=== PATIENT | female | born 1970 | race Caucasian/White ===

== ENCOUNTER → 2017-01-07 | Outpatient (CLI) | payer OTHER ==
[2015-02-13 16:43] VITALS: BP 157/95
[~2017-01-07] MED LIST: ALBUTEROL0.83 MG/ML IH; ASP PO; ASPIRIN 32325 MG/TAB PO; BUTALBITAL PO; CHLORTHALIDONE25 MG PO; LOSARTAN POTASS50 MG PO; NORVASC 5MG5 MG/TAB PO; OMNICEF 300MG300 MG PO; TORADOL10 MG PO; ZITHROMAX Z PA250 MG PO
== END ==
LOC: LAB 09:57
DX: R11.11 Vomiting without nausea (principal); W57.XXXA Bitten or stung by nonvenomous insect and other nonvenomous arthropods, initial encounter

== ENCOUNTER → 2017-04-06 | Outpatient (CLI) | payer OTHER ==
[2015-02-13 16:43] VITALS: BP 157/95
== END ==
LOC: MAMMO 08:08
DX: Z12.11 Encounter for screening for malignant neoplasm of colon (principal)
CPT/HCPCS: G0202

== ENCOUNTER → 2017-04-08 | Outpatient (CLI) | payer OTHER ==
[2015-02-13 16:43] VITALS: BP 157/95
== END ==
LOC: LAB 08:43
DX: I10 Essential (primary) hypertension (principal); E66.9 Obesity, unspecified

== ENCOUNTER → 2017-04-16 | Outpatient (CLI) | payer OTHER ==
[2015-02-13 16:43] VITALS: BP 157/95
== END ==
LOC: LAB 13:33
DX: R82.71 Bacteriuria (principal)

== ENCOUNTER → 2017-05-04 | Day surgery (SDC) | payer OTHER ==
[2015-02-13 16:43] VITALS: BP 157/95
== END ==
LOC: MSO 11:28
DX: R19.5 Other fecal abnormalities (principal); K64.1 Second degree hemorrhoids; Z80.0 Family history of malignant neoplasm of digestive organs; Z83.71 Family history of colonic polyps
CPT/HCPCS: 00810; A4649; J3010; J7120

== ENCOUNTER → 2017-06-24 | Outpatient (CLI) | payer OTHER ==
[2017-06-24] VITALS (9 sets, daily range): BP systolic 148–173; BP diastolic 95–111
[~2017-06-24] VITALS: Ht 160 cm; Wt 97.7 kg
[~2017-06-24] MED LIST changes: +B COMPLEX1 EACH PO; +CLARITIN LIQUI-10 MG PO; +ESSENTIAL DAIL1 EACH PO; +FLONASE ALLERG9.9 ML NS; +OMEPRAZOLE D/R20 MG PO; +PHARMASSURE ZIN50 MG PO; +TOPROL XL 25MG25 MG PO
== END ==
LOC: AMSURD 13:57
DX: I16.0 Hypertensive urgency (principal); H65.93 Unspecified nonsuppurative otitis media, bilateral

== ENCOUNTER → 2018-10-13 | Outpatient (CLI) | payer OTHER ==
[2017-06-24 16:15] VITALS: BP 148/95
[2018-10-14 11:24] LABS: EOS # 0.3 (0.04-0.40); EOS % 2.4 % (1.0-5.0); HEMATOCRIT 46.5 % (37.0-47.0); HEMOGLOBIN 14.3 g/dL (12.5-16.0); LYMPH# 2.6 (1.50-4.00); MEAN CELL VOLUME 83 fl (78-100); MEAN CORPUSCULAR HEMOGLOBIN 26 pg (27-31); MEAN CORPUSCULAR HGB CONC 31 g/dL (33-37); MEAN PLATELET VOLUME 11.2 fl (7.4-10.4); MONO # 1.4 (0.20-0.80); NEU # 8.3 (1.40-6.50); PLATELET COUNT 325 K/mm3 (130-400); RED CELL DISTRIBUTION WIDTH 16.1 % (11.5-14.5); WHITE BLOOD COUNT 12.7 K/mm3 (4.8-10.8)
[2018-10-14 12:34] LABS: ALBUMIN 4.3 g/dL (3.5-5.0); CALCIUM 9.9 mg/dL (8.4-10.2); POTASSIUM 4.2 mmol/L (3.6-5.0); TOTAL BILIRUBIN 0.2 mg/dL (0.2-1.3); TOTAL PROTEIN 7.7 g/dL (6.3-8.2)
== END ==
LOC: LAB 10:55
PROVIDERS: Physician Assistant
DX: R10.11 Right upper quadrant pain (principal); R11.0 Nausea

== ENCOUNTER → 2018-10-20 | Outpatient (CLI) | payer OTHER ==
[2017-06-24 16:15] VITALS: BP 148/95
== END ==
LOC: RAD 10-17 09:00
DX: K76.0 Fatty (change of) liver, not elsewhere classified (principal); R11.0 Nausea

== ENCOUNTER → 2018-11-16 | Outpatient (CLI) | payer OTHER ==
[2017-06-24 16:15] VITALS: BP 148/95
== END ==
LOC: MAMMO 10:21
DX: Z12.31 Encounter for screening mammogram for malignant neoplasm of breast (principal)

== ENCOUNTER → 2018-11-21 | Outpatient (CLI) | payer OTHER ==
[2017-06-24 16:15] VITALS: BP 148/95
[2018-11-21 09:55] LABS: ALBUMIN 4.4 g/dL (3.5-5.0); CALCIUM 9.4 mg/dL (8.4-10.2); POTASSIUM 4.2 mmol/L (3.6-5.0); TOTAL BILIRUBIN 0.4 mg/dL (0.2-1.3); TOTAL PROTEIN 7.9 g/dL (6.3-8.2)
[2018-11-21 11:05] LABS: BASO # 0.1 (0.02-0.10); EOS # 0.3 (0.04-0.40); EOS % 3.1 % (1.0-5.0); HEMATOCRIT 45.9 % (37.0-47.0); HEMOGLOBIN 13.9 g/dL (12.5-16.0); LYMPH# 2.1 (1.50-4.00); MEAN CELL VOLUME 83 fl (78-100); MEAN CORPUSCULAR HEMOGLOBIN 25 pg (27-31); MEAN CORPUSCULAR HGB CONC 30 g/dL (33-37); MEAN PLATELET VOLUME 11.2 fl (7.4-10.4); MONO # 1.1 (0.20-0.80); NEU # 7.5 (1.40-6.50); PLATELET COUNT 291 K/mm3 (130-400); RED BLOOD COUNT 5.54 M/mm3 (4.10-5.30); RED CELL DISTRIBUTION WIDTH 16.1 % (11.5-14.5); WHITE BLOOD COUNT 11.1 K/mm3 (4.8-10.8)
[2018-11-21 11:43] LABS: ERYTHROCYTE SEDIMENTATION RATE 23 mm/hr (0-20)
[2018-11-22 15:39] LABS: ANA SCREEN with REFLEX Negative (Negative)
== END ==
LOC: LAB 09:02
PROVIDERS: Physician Assistant
DX: Z00.00 Encounter for general adult medical examination without abnormal findings (principal); Z12.31 Encounter for screening mammogram for malignant neoplasm of breast; F17.209 Nicotine dependence, unspecified, with unspecified nicotine-induced disorders; K21.0 Gastro-esophageal reflux disease with esophagitis; G47.33 Obstructive sleep apnea (adult) (pediatric); I10 Essential (primary) hypertension; F41.1 Generalized anxiety disorder; R35.0 Frequency of micturition; R63.1 Polydipsia; R63.5 Abnormal weight gain

== ENCOUNTER → 2019-02-04 | Outpatient (CLI) | payer OTHER ==
[~2019-02-04] VITALS: Ht 160 cm; Wt 102.7 kg
[~2019-02-04] MED LIST changes: +ALEVE220 M1 PO; +NORVASC 10MG10 MG PO; -OMEPRAZOLE D/R20 MG PO; +OMEPRAZOLE40 MG PO
[2019-02-04 17:24] VITALS: BP 163/102
[2019-02-04 17:59] VITALS: BP 149/86
[2019-02-04 18:12] LABS: HEMATOCRIT 44.6 % (37.0-47.0); HEMOGLOBIN 14.2 g/dL (12.5-16.0); RED BLOOD COUNT 5.55 M/mm3 (4.10-5.30); RED CELL DISTRIBUTION WIDTH 16.1 % (11.5-14.5); WHITE BLOOD COUNT 11.7 K/mm3 (4.8-10.8)
[2019-02-04 18:56] VITALS: BP 145/87
== END ==
LOC: AMSURD 17:13
PROVIDERS: Nurse Practitioner
DX: R07.89 Other chest pain (principal); R22.0 Localized swelling, mass and lump, head
CPT/HCPCS: J1200; J2930; J3490

== ENCOUNTER → 2020-02-12 | Outpatient (CLI) | payer OTHER ==
[2019-02-04 18:56] VITALS: BP 145/87
[2020-02-12 08:50] LABS: EOS # 0.2 (0.04-0.40); EOS % 2.4 % (1.0-5.0); HEMATOCRIT 44.6 % (37.0-47.0); HEMOGLOBIN 13.9 g/dL (12.5-16.0); LYMPH# 2.5 (1.50-4.00); MEAN CELL VOLUME 81 fl (78-100); MEAN CORPUSCULAR HEMOGLOBIN 25 pg (27-31); MEAN CORPUSCULAR HGB CONC 31 g/dL (33-37); NEU # 6.3 (1.40-6.50); PLATELET COUNT 312 K/mm3 (130-400); WHITE BLOOD COUNT 10.1 K/mm3 (4.8-10.8)
[2020-02-12 08:59] LABS: ALBUMIN 4.1 g/dL (3.5-5.0); POTASSIUM 4.1 mmol/L (3.5-5.1)
[2020-02-12 09:00] LABS: CALCIUM 9.3 mg/dL (8.3-10.5)
[2020-02-12 09:01] LABS: TOTAL PROTEIN 7.3 g/dL (6.4-8.3)
[2020-02-12 09:03] LABS: TOTAL BILIRUBIN 0.4 mg/dL (0.2-1.2)
== END ==
LOC: LAB 08:24
PROVIDERS: Physician Assistant
DX: Z76.89 Persons encountering health services in other specified circumstances (principal); I10 Essential (primary) hypertension; K22.2 Esophageal obstruction; G47.33 Obstructive sleep apnea (adult) (pediatric); E65 Localized adiposity; J30.1 Allergic rhinitis due to pollen

== ENCOUNTER → 2020-02-21 | Outpatient (CLI) | payer OTHER ==
[2019-02-04 18:56] VITALS: BP 145/87
== END ==
LOC: MAMMO 10:45
DX: Z00.00 Encounter for general adult medical examination without abnormal findings (principal); Z12.31 Encounter for screening mammogram for malignant neoplasm of breast

== ENCOUNTER → 2020-05-16 | Outpatient (CLI) | payer OTHER ==
[2019-02-04 18:56] VITALS: BP 145/87
== END ==
LOC: RAD 16:09
DX: M25.512 Pain in left shoulder (principal)

== ENCOUNTER → 2020-05-24 | Outpatient (CLI) | payer OTHER ==
[2019-02-04 18:56] VITALS: BP 145/87
[2020-05-24 10:42] LABS: BASO # 0.1 (0.02-0.10); EOS # 0.2 (0.04-0.40); EOS % 2.2 % (1.0-5.0); HEMATOCRIT 43.8 % (37.0-47.0); HEMOGLOBIN 13.4 g/dL (12.5-16.0); LYMPH# 2.7 (1.50-4.00); MEAN CELL VOLUME 81 fl (78-100); MEAN CORPUSCULAR HEMOGLOBIN 25 pg (27-31); MEAN CORPUSCULAR HGB CONC 31 g/dL (33-37); MEAN PLATELET VOLUME 10.3 fl (7.4-10.4); MONO # 0.9 (0.20-0.80); PLATELET COUNT 285 K/mm3 (130-400); RED CELL DISTRIBUTION WIDTH 16.4 % (11.5-14.5)
[2020-05-24 10:44] LABS: POTASSIUM 4.2 mmol/L (3.5-5.1)
[2020-05-24 10:47] LABS: TOTAL PROTEIN 7.2 g/dL (6.4-8.3)
[2020-05-24 10:49] LABS: TOTAL BILIRUBIN 0.4 mg/dL (0.2-1.2)
[2020-05-25 00:39] LABS: FOLATE (FOLIC ACID) >20.0 ng/mL (7.0-31.4)
== END ==
LOC: LAB 10:15
PROVIDERS: Physician Assistant
DX: I10 Essential (primary) hypertension (principal); K22.2 Esophageal obstruction; E66.9 Obesity, unspecified; G47.33 Obstructive sleep apnea (adult) (pediatric); K90.9 Intestinal malabsorption, unspecified; E78.5 Hyperlipidemia, unspecified; R73.9 Hyperglycemia, unspecified

== ENCOUNTER → 2020-08-20 | Outpatient (CLI) | payer OTHER ==
[2019-02-04 18:56] VITALS: BP 145/87
[2020-08-20 12:19] LABS: HEMATOCRIT 41.6 % (37.0-47.0); RED BLOOD COUNT 5.16 M/mm3 (4.10-5.30); RED CELL DISTRIBUTION WIDTH 16.5 % (11.5-14.5); WHITE BLOOD COUNT 9.2 K/mm3 (4.8-10.8)
[2020-08-20 12:28] LABS: CALCIUM 9.4 mg/dL (8.3-10.5)
== END ==
LOC: LAB 11:30
PROVIDERS: Internal Medicine Interventional Cardiology
DX: Z01.812 Encounter for preprocedural laboratory examination (principal); R60.0 Localized edema; Z11.59 Encounter for screening for other viral diseases

== ENCOUNTER → 2020-08-23 | Outpatient (CLI) | payer OTHER ==
[2019-02-04 18:56] VITALS: BP 145/87
== END ==
LOC: LAB 10:08
DX: Z01.812 Encounter for preprocedural laboratory examination (principal); R60.0 Localized edema; Z20.828 Contact with and (suspected) exposure to other viral communicable diseases

== ENCOUNTER → 2020-12-03 | Outpatient (CLI) | payer OTHER ==
[2019-02-04 18:56] VITALS: BP 145/87
[~2020-12-03] MED LIST changes: +ALIGN4 MG PO; +FEMININE SUPPOR1 TA2 PO; +PROAIR HFA0.09 MG/AC IH; +VITAMIN D350 MC4 PO
== END ==
LOC: VAS 08:44 → RAD 09:15 → VAS 09:15 → RAD 09:30
DX: R47.9 Unspecified speech disturbances (principal); R41.82 Altered mental status, unspecified; R42 Dizziness and giddiness; R26.9 Unspecified abnormalities of gait and mobility

== ENCOUNTER → 2020-12-25 | Outpatient (CLI) | payer OTHER ==
[2019-02-04 18:56] VITALS: BP 145/87
[2020-12-25 10:21] LABS: BASO # 0.06 (0.02-0.10); EOS # 0.28 (0.04-0.40); EOS % 1.7 % (1.0-5.0); HEMATOCRIT 43.3 % (37.0-47.0); HEMOGLOBIN 13.7 g/dL (12.5-16.0); LYMPH# 2.76 (1.50-4.00); MEAN CELL VOLUME 79 fl (78-100); MEAN CORPUSCULAR HEMOGLOBIN 25 pg (27-31); MEAN CORPUSCULAR HGB CONC 32 g/dL (33-37); MEAN PLATELET VOLUME 9.9 fl (7.4-10.4); MONO # 1.34 (0.20-0.80); NEU # 11.69 (1.40-6.50); PLATELET COUNT 294 K/mm3 (130-400); RED BLOOD COUNT 5.45 M/mm3 (4.10-5.30); RED CELL DISTRIBUTION WIDTH 16.2 % (11.5-14.5); WHITE BLOOD COUNT 16.3 K/mm3 (4.8-10.8)
[2020-12-25 10:22] LABS: POTASSIUM 3.6 mmol/L (3.5-5.1)
[2020-12-25 10:23] LABS: CALCIUM 9.2 mg/dL (8.3-10.5)
[2020-12-25 10:24] LABS: TOTAL PROTEIN 7.5 g/dL (6.4-8.3)
[2020-12-25 10:26] LABS: TOTAL BILIRUBIN 0.4 mg/dL (0.2-1.2)
[2020-12-26 13:29] LABS: ANA SCREEN with REFLEX Negative (Negative)
== END ==
LOC: LAB 09:38
PROVIDERS: Physician Assistant
DX: G40.909 Epilepsy, unspecified, not intractable, without status epilepticus (principal)

== ENCOUNTER 2021-03-17 12:59 | Outpatient (RCR) | payer OTHER ==
[~2021-03-17 12:59] MED LIST changes: -ALIGN4 MG PO; -FEMININE SUPPOR1 TA2 PO; -PROAIR HFA0.09 MG/AC IH; -VITAMIN D350 MC4 PO
[2021-05-16] MEDS ORDERED: VITAMIN D350 MC4 PO (23:53)
[2021-05-16] MEDS ORDERED: ALIGN4 MG PO (23:54)
[2021-05-16] MEDS ORDERED: PROAIR HFA0.09 MG/AC IH (23:54)
[2021-05-16] MEDS ORDERED: FEMININE SUPPOR1 TA2 PO (23:55)
== END 2021-06-15 | disposition home or self-care (01) ==
LOC: PT
DX: M75.02 Adhesive capsulitis of left shoulder (principal)

== ENCOUNTER 2021-05-16 22:56 | Emergency (ER) | payer OTHER ==
[~2021-05-16] VITALS: Ht 160 cm; Wt 118.2 kg
[2021-05-16] MEDS ORDERED: VITAMIN D350 MC4 PO (23:53)
[2021-05-16] MEDS ORDERED: ALIGN4 MG PO (23:54)
[2021-05-16] MEDS ORDERED: PROAIR HFA0.09 MG/AC IH (23:54)
[2021-05-16] MEDS ORDERED: FEMININE SUPPOR1 TA2 PO (23:55)
[2021-05-17 00:52] LABS: POTASSIUM 3.7 mmol/L (3.5-5.1); SODIUM 141 mmol/L (136-145)
[2021-05-17 00:53] LABS: ALBUMIN 4.1 g/dL (3.5-5.0)
[2021-05-17 00:54] LABS: GLUCOSE 134 mg/dL (65-105); TOTAL PROTEIN 7.9 g/dL (6.4-8.3)
[2021-05-17 00:55] LABS: CARBON DIOXIDE 22 mmol/L (22-29)
[2021-05-17 00:56] LABS: TOTAL BILIRUBIN 0.3 mg/dL (0.2-1.2)
[2021-05-17 01:01] LABS: ALT/SGPT 56 U/L (0-55); AST-SGOT 43 U/L (5-34)
[2021-05-17 01:10] LABS: TROPONIN-I < 0.03 ng/mL (<0.030)
[2021-05-17 01:26] LABS: BASO # 0.05 (0.02-0.10); EOS # 0.28 (0.04-0.40); EOS % 2.3 % (1.0-5.0); HEMATOCRIT 43.7 % (37.0-47.0); HEMOGLOBIN 13.8 g/dL (12.5-16.0); LYMPH# 2.75 (1.50-4.00); MEAN CELL VOLUME 81 fl (78-100); MEAN CORPUSCULAR HEMOGLOBIN 26 pg (27-31); MEAN CORPUSCULAR HGB CONC 32 g/dL (33-37); MEAN PLATELET VOLUME 9.8 fl (7.4-10.4); MONO # 0.98 (0.20-0.80); NEU # 8.27 (1.40-6.50); PLATELET COUNT 280 K/mm3 (130-400); RED BLOOD COUNT 5.39 M/mm3 (4.10-5.30); WHITE BLOOD COUNT 12.4 K/mm3 (4.8-10.8)
[2021-05-17 01:57] VITALS: BP 145/89
== END 2021-05-17 01:57 | disposition home or self-care (01) ==
LOC: ED 22:56
PROVIDERS: Family Medicine
DX: R06.02 Shortness of breath (principal); I10 Essential (primary) hypertension; J45.909 Unspecified asthma, uncomplicated; K21.9 Gastro-esophageal reflux disease without esophagitis; Z20.822 Contact with and (suspected) exposure to COVID-19; Z79.899 Other long term (current) drug therapy

== ENCOUNTER → 2021-10-07 | Outpatient (CLI) | payer OTHER ==
[~2021-10-07] MED LIST changes: +ALIGN4 MG PO; +FEMININE SUPPOR1 TA2 PO; +PROAIR HFA0.09 MG/AC IH; +VITAMIN D350 MC4 PO
[2021-10-07 09:49] LABS: POTASSIUM 4.5 mmol/L (3.5-5.1)
[2021-10-07 09:50] LABS: ALBUMIN 3.9 g/dL (3.5-5.0)
[2021-10-07 09:54] LABS: TOTAL BILIRUBIN 0.2 mg/dL (0.2-1.2)
== END ==
LOC: LAB 08:18
PROVIDERS: Physician Assistant
DX: I10 Essential (primary) hypertension (principal); G43.009 Migraine without aura, not intractable, without status migrainosus; L65.9 Nonscarring hair loss, unspecified; G40.909 Epilepsy, unspecified, not intractable, without status epilepticus; R73.9 Hyperglycemia, unspecified; E53.8 Deficiency of other specified B group vitamins; E55.9 Vitamin D deficiency, unspecified

== ENCOUNTER → 2021-10-13 | Outpatient (CLI) | payer OTHER ==
[2021-10-13 16:20] LABS: BASO # 0.06 K/mm3 (0.02-0.10); EOS # 0.24 K/mm3 (0.04-0.40); HEMATOCRIT 43.5 % (37.0-47.0); HEMOGLOBIN 13.4 g/dL (12.5-16.0); LYMPH# 3.03 K/mm3 (1.50-4.00); MEAN CELL VOLUME 82 fl (78-100); MEAN CORPUSCULAR HEMOGLOBIN 25 pg (27-31); MEAN CORPUSCULAR HGB CONC 31 g/dL (33-37); MEAN PLATELET VOLUME 9.9 fl (7.4-10.4); MONO # 1.12 K/mm3 (0.20-0.80); NEU # 7.72 K/mm3 (1.40-6.50); PLATELET COUNT 270 K/mm3 (130-400); RED BLOOD COUNT 5.33 M/mm3 (4.10-5.30); RED CELL DISTRIBUTION WIDTH 17.2 % (11.5-14.5); WHITE BLOOD COUNT 12.2 K/mm3 (4.8-10.8)
== END ==
LOC: LAB 15:54
PROVIDERS: Physician Assistant
DX: I10 Essential (primary) hypertension (principal); G43.009 Migraine without aura, not intractable, without status migrainosus; L65.9 Nonscarring hair loss, unspecified; G40.909 Epilepsy, unspecified, not intractable, without status epilepticus; R73.9 Hyperglycemia, unspecified; E53.8 Deficiency of other specified B group vitamins; E55.9 Vitamin D deficiency, unspecified

== ENCOUNTER → 2021-11-06 | Day surgery (SDC) | payer OTHER | LOC: MSO 08:14 | DX: D12.2 Benign neoplasm of ascending colon (principal); K22.2 Esophageal obstruction; K21.00 Gastro-esophageal reflux disease with esophagitis, without bleeding; K57.30 Diverticulosis of large intestine without perforation or abscess without bleeding; K44.9 Diaphragmatic hernia without obstruction or gangrene; Z79.899 Other long term (current) drug therapy; Z87.891 Personal history of nicotine dependence | CPT/HCPCS: 00813; J2250; J2704; J7120 ==

== ENCOUNTER → 2021-11-24 | Outpatient (CLI) | payer OTHER | LOC: LAB 15:21 → RAD 15:21 | DX: M79.671 Pain in right foot (principal); Z96.9 Presence of functional implant, unspecified ==

== ENCOUNTER → 2022-03-03 | Outpatient (CLI) | payer OTHER | LOC: LAB 15:41 | DX: K21.00 Gastro-esophageal reflux disease with esophagitis, without bleeding (principal); I10 Essential (primary) hypertension; E11.21 Type 2 diabetes mellitus with diabetic nephropathy ==

== ENCOUNTER → 2022-06-16 | Outpatient (CLI) | payer OTHER ==
[~2022-06-16] MED LIST changes: +COREG 3.123.125 MG/T PO; +METFORMIN HYD1000 MG PO
== END ==
LOC: LAB 06-15 15:33
DX: E11.21 Type 2 diabetes mellitus with diabetic nephropathy (principal); H93.8X9 Other specified disorders of ear, unspecified ear; I10 Essential (primary) hypertension; E66.9 Obesity, unspecified; J30.2 Other seasonal allergic rhinitis

== ENCOUNTER → 2022-09-02 | Outpatient (CLI) | payer OTHER | LOC: MAMMO 15:52 | DX: Z12.31 Encounter for screening mammogram for malignant neoplasm of breast (principal); N64.89 Other specified disorders of breast ==

== ENCOUNTER → 2022-09-10 | Outpatient (CLI) | payer OTHER | LOC: RAD 12:30 | DX: R92.8 Other abnormal and inconclusive findings on diagnostic imaging of breast (principal) ==

== ENCOUNTER 2022-10-23 16:28 | Emergency (ER) | payer OTHER ==
[~2022-10-23] VITALS: Wt 121.1 kg
[2022-10-23] MEDS ORDERED: TRULICITY0.75 MG/0. SC (16:48)
[2022-10-23 17:40] VITALS: BP 151/81
== END 2022-10-23 17:27 | disposition home or self-care (01) ==
LOC: ED 16:28
DX: G40.909 Epilepsy, unspecified, not intractable, without status epilepticus (principal); F41.9 Anxiety disorder, unspecified; E66.9 Obesity, unspecified

== ENCOUNTER 2023-04-23 13:31 | Emergency (ER) | payer OTHER ==
[~2023-04-23] VITALS: Ht 160 cm; Wt 107.3 kg
[~2023-04-23 13:31] MED LIST changes: +TRULICITY0.75 MG/0. SC
[2023-04-23] MEDS ORDERED: ATORVASTATIN CA20 MG PO (13:52)
[2023-04-23 15:44] VITALS: BP 138/85
== END 2023-04-23 15:40 | disposition home or self-care (01) ==
LOC: ED 13:31
DX: R07.89 Other chest pain (principal); T43.595A Adverse effect of other antipsychotics and neuroleptics, initial encounter
CPT/HCPCS: J1200

== ENCOUNTER 2023-07-29 20:40 | Emergency (ER) | payer OTHER ==
[~2023-07-29] VITALS: Ht 160 cm; Wt 93.6 kg
[~2023-07-29 20:40] MED LIST changes: +ATORVASTATIN CA20 MG PO
[2023-07-29 21:12] VITALS: BP 130/82
[2023-07-30] MEDS ORDERED: ASPIRIN E.C. 8181 MG (00:13)
[2023-07-30] MEDS ORDERED: ATIVAN0.5 MG PO (00:13)
[2023-07-30] MEDS ORDERED: ACETAMINOPHEN500 M5 PO (00:14)
[2023-07-30] MEDS ORDERED: ALLERGY MEDICAT25 MG PO (00:15)
== END 2023-07-29 21:50 | disposition home or self-care (01) ==
LOC: ED 20:40
DX: M25.511 Pain in right shoulder (principal)

== ENCOUNTER 2023-10-20 17:51 | Emergency (ER) | payer OTHER ==
[~2023-10-20] VITALS: Ht 160 cm; Wt 92.7 kg
[~2023-10-20 17:51] MED LIST changes: +ACETAMINOPHEN500 M5 PO; +ALLERGY MEDICAT25 MG PO; +ASPIRIN E.C. 8181 MG; +ATIVAN0.5 MG PO
[2023-10-20] MEDS ORDERED: MACROBID 1100 MG/CAP PO (17:52)
[2023-10-20] MEDS ORDERED: CARVEDILOL3.125 MG PO (17:53)
[2023-10-20] MEDS ORDERED: Iohexol 300 - 100 ML VIAL IV ONE (18:27)
[2023-10-20 18:39] LABS: BASO # 0.03 K/mm3 (0.02-0.10); EOS # 0.15 K/mm3 (0.04-0.40); EOS % 1.5 % (1.0-5.0); HEMATOCRIT 41.7 % (37.0-47.0); HEMOGLOBIN 12.9 g/dL (12.5-16.0); LYMPH# 2.49 K/mm3 (1.50-4.00); MEAN CELL VOLUME 78 fl (78-100); MEAN CORPUSCULAR HEMOGLOBIN 24 pg (27-31); MEAN CORPUSCULAR HGB CONC 31 g/dL (33-37); MEAN PLATELET VOLUME 9.7 fl (7.4-10.4); MONO # 0.66 K/mm3 (0.20-0.80); NEU # 6.62 K/mm3 (1.40-6.50); PH-URINE 6.5 (5.0 - 8.0); PLATELET COUNT 304 K/mm3 (130-400); RED BLOOD COUNT 5.32 M/mm3 (4.10-5.30); RED CELL DISTRIBUTION WIDTH 15.8 % (11.5-14.5); URINE APPEARANCE CLEAR (CLEAR); URINE BILIRUBIN NEGATIVE (NEGATIVE); URINE BLOOD TRACE-INTACT (NEGATIVE); URINE COLOR YELLOW (YELLOW); URINE GLUCOSE NEGATIVE (NEGATIVE); URINE KETONE NEGATIVE (NEGATIVE); URINE LEUKOCYTE ESTERASE NEGATIVE (NEGATIVE); URINE NITRATE NEGATIVE (NEGATIVE); URINE PROTEIN(semi-quant) NEGATIVE (NEGATIVE); URINE WBC 0-1 /hpf (0-3)
[2023-10-20 18:45] LABS: ALBUMIN 4.5 g/dL (3.5-5.0)
[2023-10-20 18:46] LABS: CALCIUM 10.1 mg/dL (8.3-10.5)
[2023-10-20 18:47] LABS: TOTAL PROTEIN 8.1 g/dL (6.4-8.3)
[2023-10-20 18:49] LABS: TOTAL BILIRUBIN 0.3 mg/dL (0.2-1.2)
[2023-10-20 20:09] VITALS: BP 150/98
== END 2023-10-20 20:09 | disposition home or self-care (01) ==
LOC: ED 17:51
PROVIDERS: Nurse Practitioner
DX: N20.0 Calculus of kidney (principal); R31.29 Other microscopic hematuria

== ENCOUNTER → 2023-11-05 | Outpatient (CLI) | payer OTHER ==
[~2023-11-05] MED LIST changes: +CARVEDILOL3.125 MG PO; +MACROBID 1100 MG/CAP PO
== END ==
LOC: RAD 08:29
DX: R10.2 Pelvic and perineal pain (principal); Z90.710 Acquired absence of both cervix and uterus